=== PATIENT | female | born 1995 | race Two or more races ===

== ENCOUNTER 2018-02-12 15:20 | Emergency (ER) | payer BC, OTHER ==
[~2018-02-12] VITALS: Ht 175.3 cm; Wt 99.8 kg
[2018-02-12 15:20] VITALS: BP 121/61
[~2018-02-12 15:20] MED LIST: DULO20CA50 PO; FLEXERIL; HYDR-971 PO; OXYC-328 PO; SULF1TAB24 PO; TRAZ-85 PO; ZOLP5TAB PO
[2018-02-12] MEDS ORDERED: ACETAMINOPHEN 325 MG TABLET PO ONE (16:15)
[2018-02-12] MEDS ORDERED: IV NORMAL SALINE 1,000ML 1,000 ML IV ONE (16:15)
[2018-02-12 16:23] LABS: CALCIUM 9.4 mg/dL (8.5-10.1); CREATININE 0.6 mg/dL (0.6-1.0); GFR 122.8; POTASSIUM 3.9 mmol/L (3.5-5.1)
[2018-02-12 16:26] LABS: BASO % 0 % (0-3); EOS # 0.1 x10^3/uL (0.0-0.7); EOS % 1 % (0-3); HEMATOCRIT 34.9 % (36.0-47.0); HEMOGLOBIN 11.8 g/dL (12.0-15.5); LYMPH # 2.5 x10^3/uL (1.0-4.8); LYMPH % 22 % (24-48); MEAN CORPUSCULAR HEMOGLOBIN 31 pg (25-35); MEAN CORPUSCULAR HGB CONC 34 g/dL (31-37); MEAN CORPUSCULAR VOLUME 91 fL (79-100); MONO # 0.7 x10^3/uL (0.0-1.1); MONO % 7 % (0-9); NEUT # 7.9 x10^3uL (1.8-7.7); NEUT % 70 % (31-73); PLATELET COUNT 265 x10^3/uL (140-400); RED BLOOD COUNT 3.81 x10^6/uL (3.50-5.40); RED CELL DISTRIBUTION WIDTH 13.6 % (11.5-14.5); WHITE BLOOD COUNT 11.3 x10^3/uL (4.0-11.0)
--- NOTE | 2018-02-12 16:36 | PHYS DOC ---
Past History Past Medical History: Anxiety, Depression Past Surgical History: No Surgical History Smoking: Cigarettes, Less than 1pk/day Alcohol Use: None Drug Use: Amphetamine, Heroin, Marijuana Adult General Chief Complaint Chief Complaint: PELVIC PAIN [facility] HPI 22-year-old female who is 26 weeks presents with lower abdominal pain. The patient states the pain started suddenly while she was having an argument with her boyfriend. The pain is mostly in her right side. She denies nausea, vomiting, diarrhea, fever or chills. She states that she has been feeling the baby move with the same frequency as other days. She denies any vaginal discharge or bleeding. Since her first . She did not go to a hospital that she plans to read because she is trying to decide. She is also changing OB doctors. She has no other complaints. Review of Systems Review of Systems Constitutional: Denies fever or chills [] Eyes: Denies change in visual acuity, redness, or eye pain [] HENT: Denies nasal congestion or sore throat [] Respiratory: Denies cough or shortness of breath [] Cardiovascular: No additional information not addressed in HPI [] GI: Right lower quadrant abdominal pain[] : Denies dysuria or hematuria [] Musculoskeletal: Denies back pain or joint pain [] Integument: Denies rash or skin lesions [] Neurologic: Denies headache, focal weakness or sensory changes [] Endocrine: Denies polyuria or polydipsia [] All other systems were reviewed and found to be within normal limits, except as documented in this note. Current Medications Current Medications Current Medications Medications (Trade) Dose Ordered [facility] Start Time Stop Time Status Last Admin Dose Admin Acetaminophen (Tylenol) 650 mg 1X ONCE 02/12/18 16:15 02/12/18 16:16 DC Sodium Chloride 1,000 ml @ 1,000 mls/hr 1X ONCE 02/12/18 16:15 02/12/18 17:14 Allergies Allergies Allergies Coded Allergies Type Severity Reaction Last Updated Verified tramadol Allergy Intermediate 05/09/14 Yes red dye Adverse Reaction Intermediate 05/08/14 Yes Physical Exam Physical Exam Constitutional: Well developed, well nourished, no acute distress, non-toxic appearance. [] HENT: Normocephalic, atraumatic, bilateral external ears normal, oropharynx moist, no oral exudates, nose normal. [] Eyes: PERRLA, EOMI, conjunctiva normal, no discharge. [] Neck: Normal range of motion, no tenderness, supple, no stridor. [] Cardiovascular:Heart rate regular rhythm, no murmur [] Lungs & Thorax: Bilateral breath sounds clear to auscultation [] Abdomen: Gravid uterus. No increase in pain with palpation of the right lower quadrant. No guarding or rebound.[] Skin: Warm, dry, no erythema, no rash. [] Back: No tenderness, no CVA tenderness. [] Extremities: No tenderness, no cyanosis, no clubbing, ROM intact, no edema. [] Neurologic: Alert and oriented X 3, normal motor function, normal sensory function, no focal deficits noted. [] Psychologic: Affect normal, judgement normal, mood normal. [] Current Patient Data Lab Results Laboratory Tests Test 02/12/18 15:48 02/12/18 16:17 White Blood Count 11.3 x10^3/uL (4.0-11.0) H Red Blood Count 3.81 x10^6/uL (3.50-5.40) Hemoglobin 11.8 g/dL (12.0-15.5) L Hematocrit 34.9 % (36.0-47.0) L Mean Corpuscular Volume 91 fL (79-100) Mean Corpuscular Hemoglobin 31 pg (25-35) Mean Corpuscular Hemoglobin Concent 34 g/dL (31-37) Red Cell Distribution Width 13.6 % (11.5-14.5) Platelet Count 265 x10^3/uL (140-400) Neutrophils (%) (Auto) 70 % (31-73) Lymphocytes (%) (Auto) 22 % (24-48) L Monocytes (%) (Auto) 7 % (0-9) Eosinophils (%) (Auto) 1 % (0-3) Basophils (%) (Auto) 0 % (0-3) Neutrophils # (Auto) 7.9 x10^3uL (1.8-7.7) H Lymphocytes # (Auto) 2.5 x10^3/uL (1.0-4.8) Monocytes # (Auto) 0.7 x10^3/uL (0.0-1.1) Eosinophils # (Auto) 0.1 x10^3/uL (0.0-0.7) Basophils # (Auto) 0.0 x10^3/uL (0.0-0.2) Sodium Level 139 mmol/L (136-145) Potassium Level 3.9 mmol/L (3.5-5.1) Chloride Level 105 mmol/L (98-107) Carbon Dioxide Level 23 mmol/L (21-32) Anion Gap 11 (6-14) Blood Urea Nitrogen 6 mg/dL (7-20) L Creatinine 0.6 mg/dL (0.6-1.0) Estimated GFR (Cockcroft-Gault) 122.8 Glucose Level 91 mg/dL (70-99) Calcium Level 9.4 mg/dL (8.5-10.1) Glucose (Fingerstick) 92 mg/dL (70-99) EKG EKG [] Radiology/Procedures Radiology/Procedures [] Course & Med Decision Making Course & Med Decision Making Pertinent Labs and Imaging studies reviewed. (See chart for details) Driving fluids and Tylenol patient was much better. She feels as though she can go home. I have encouraged her to stay well-hydrated. She is stable for discharge at this time. [] Dragon Disclaimer Dragon Disclaimer This electronic medical record was generated, in whole or in part, using a voice recognition dictation system. Departure Departure: Referrals: PCP,KAILA (PCP) AMADOR WALSH DO Feb 12, 2018 16:36
== END 2018-02-12 17:40 | disposition home or self-care (01) ==
LOC: ER 15:20
DX: O26.892 Other specified pregnancy related conditions, second trimester (principal); R10.31 Right lower quadrant pain; O99.342 Other mental disorders complicating pregnancy, second trimester; F41.9 Anxiety disorder, unspecified; F32.9 Major depressive disorder, single episode, unspecified; O99.332 Smoking (tobacco) complicating pregnancy, second trimester; Z3A.26 26 weeks gestation of pregnancy; Z88.6 Allergy status to analgesic agent; Z91.041 Radiographic dye allergy status
CPT/HCPCS: 36415; 80048; 82947; 85025; 99284-25; J7030

== ENCOUNTER → 2019-11-10 | Outpatient (CLI) | payer BC, OTHER ==
[~2019-11-10] MED LIST changes: +HYDR-3165 PO; -HYDR-971 PO; -OXYC-328 PO; +OXYC1TAB22 PO; +TRAZ-120 PO; -TRAZ-85 PO
--- NOTE | 2019-11-10 12:55 | RAD ---
EXAM: OB ultrasound second trimester 11/10/2019 11:00 AM INDICATION: Unsure of LMP. COMPARISON: None TECHNIQUE: OB ultrasound performed per second trimester protocol. FINDINGS: There is a single living intrauterine . heart rate is 169 bpm. movement is visualized. The placenta is anterior, grade 0. No placenta previa. Cervix measures 6.4 cm. BIOMETRY Biparietal diameter: 2.9 cm, 15 weeks 3 days Head circumference: 11.4 cm, 15 weeks 4 days Abdominal circumference: 9.3 cm, 15 weeks 3 days Femur length: 1.7 cm, 15 weeks 0 days HC/AC ratio: 1.23 Gestational age by ultrasound: 15 weeks 3 days anatomy cannot be evaluated on this exam due to early gestational age. Left ovary measures 5.0 x 2.1 x 2.9 cm. Right is not visualized. IMPRESSION: Single living intrauterine with gestational age 15 weeks 3 days by ultrasound. Electronically signed by: Rhonda Horvath MD (11/10/2019 12:52 PM) [id number]
== END | disposition home or self-care (01) ==
LOC: US 10:55
PROVIDERS: ATTEND Obstetrics & Gynecology
DX: Z34.92 Encounter for supervision of normal pregnancy, unspecified, second trimester (principal); Z3A.15 15 weeks gestation of pregnancy
CPT/HCPCS: 76805

== ENCOUNTER → 2019-12-26 | Outpatient (CLI) | payer OTHER ==
--- NOTE | 2019-12-26 16:28 | RAD ---
EXAM: Ultrasound OB Greater than 14 weeks INDICATION: Reason: ANATOMY SCAN, NORMAL SECOND TRI / Spl. Instructions: / History: TECHNIQUE: Real-time obstetrical ultrasound was performed with permanent freeze-frame documentation. COMPARISON: None. FINDINGS: POSITION: Breech HEART RATE: 152 bpm NELL: 14.7 cm. PLACENTA: Anterior, not low-lying. CERVICAL LENGTH: Not assessed. MATERNAL UTERUS: Unremarkable. MATERNAL ADNEXA: Unremarkable. AGE/DATES: Gestational Age by LMP: 22 weeks 4 days Gestation Age by US: 21 weeks 5 days EDC by LMP: April 26, 2020 EDC by US: May 02, 2020 WEIGHT: 465 grams +/- 69 grams PERCENTILE WEIGHT: 30% BIOMETRIC PARAMETERS: BPD: 5.1 cm corresponding with 21 weeks 2 days HC: 18.9 cm corresponding with 21 weeks and 1 day AC: 17.8 cm corresponding with 22 weeks 5 days FL: 3.6 cm corresponding with 21 weeks 3 days ANATOMY: CARDIAC: Normal four chamber heart. Normal right and left ventricular outflow tracts. UMBILICAL CORD: Normal 3 vessel cord. Normal cord insertion. BRAIN: Unremarkable. NOSE/LIPS: Not well seen SPINE: Not well seen. EXTREMITIES: Unremarkable. STOMACH: Unremarkable. KIDNEYS: Unremarkable. BLADDER: Not well seen IMPRESSION: OB ultrasound demonstrating a single viable fetus in breech position. Estimated gestational age of 21 weeks 5 days and EDC of May 02, 2020. Electronically signed by: Marion Fontana MD (12/26/2019 4:25 PM) [id number]
== END ==
LOC: US 10:50
PROVIDERS: ATTEND Obstetrics & Gynecology
DX: O32.1XX0 Maternal care for breech presentation, not applicable or unspecified (principal); Z3A.21 21 weeks gestation of pregnancy
CPT/HCPCS: 76805

== ENCOUNTER 2021-10-29 18:32 | Emergency (ER) | payer OTHER ==
[~2021-10-29] VITALS: Ht 175.3 cm; Wt 89.9 kg
--- NOTE | 2021-10-29 18:38 | PHYS DOC ---
Past History Past Medical History: Anxiety, Depression Past Surgical History: No Surgical History Smoking: Cigarettes, Less than 1pk/day Alcohol Use: None Drug Use: Amphetamine, Heroin, Marijuana General Adult EDM: Chief Complaint: OVERDOSE HPI: HPI: Uh.. uh.. ( snoring).. "yeah" yeah."... " Fuck off"' Patient is a 25 year old female who presents with hx. found in car non- responsive. Pt. hx. of Meth and Herion per family and bystanders per sales and service technician. Pt give 4 mg of Narcan nasal and had partial regain of awareness and verbal response. Pt has sunburn to thighs. Still very sedated on arrival. Pt. know to have passed and attempted to pass forged scripts for Clonzepam on 06/11/21, 93 Alpraxzolam, Hydrocodone on 06/08/21. It appeared she had altered her sons antibiotic scripts. Pt. also picked up Rx. for similar meds for Esteban Mcintyre. . Pt. presents today with apparent most likely narcotic over dose, by her response to nasal narcan. Pt. hx of prior polysubstance abuse 10 yrs ago that required hospitalization. Pt. in hot car in excess of 45 min. at least. Further history is not currently available. Mother states she is currently living with her. Social situation, she has lost custody of her children because of narcotic abuse. Children are currently living with her brother. Patient found unknown white powder substance on her person. This was signed out to Security. Pt. is arousable with noxious stimuli but falls back to sleep quickly. Review of Systems: Review of Systems: ROS- limited because of pt. sedated state. Family History: Family History: Not currently available' -Brother called and advised he has her children Current Medications: Current Meds: See nursing for home meds Allergies: Allergies: Allergies Coded Allergies Type Severity Reaction Last Updated Verified tramadol Allergy Intermediate 05/09/14 Yes red dye Adverse Reaction Intermediate 05/08/14 Yes Physical Exam: PE: Constitutional: , no acute distress, very sedated as if the influence of narcotic or benzodiazepine and appearance. [] HENT: Normocephalic, atraumatic, bilateral external ears normal, oropharynx moist, no oral exudates, nose normal. [] Eyes: PERRLA, EOMI, conjunctiva normal, no discharge. [] Neck: Normal range of motion, no tenderness, supple, no stridor. He acute right side Cardiovascular: Tachycardia heart rate regular rhythm, no murmur [] Lungs & Thorax: Bilateral breath sounds equal apex with scattered wheezes auscultation [] few rhonchi over right lung gonzales Abdomen: Bowel sounds decreased, soft, no tenderness, no masses, no pulsatile masses. [] Skin: Warm, dry, no erythema, no rash. [] Sunburn on thighs Back: No tenderness, no CVA tenderness. [] Extremities: No tenderness, no cyanosis, no clubbing, ROM intact, no edema. [] Neurologic: Very sedated. Arousable with minimal noxious stimuli. Moves all extremities with noxious stimuli, does appear to have distal sensory, no focal deficits noted. [] Psychologic: Affect sedated, judgement currently impaired, EKG: EKG: My interpretation of EKG shows a sinus tachycardia rhythm [] at a rate of 114. No acute morphology. No findings acute STEMI with contralateral changes. Time of EKG is 1926 hrs. Radiology/Procedures: Radiology/Procedures: [place] [address] IMAGING REPORT Signed PATIENT: SHORTY GALLOWAY ACCOUNT: [id number] : 1995 LOCATION: ER AGE: 25 SEX: F EXAM STATUS: REG ER ORD. PHYSICIAN: JONATHAN CUEVAS MD REASON: suspect narcotic od, mental status change, min. resp to 4 narca PROCEDURE: CT HEAD AND CERVICAL SPINE WO EXAM: CT HEAD WITHOUT IV CONTRAST CLINICAL HISTORY: Reason: suspect narcotic od, mental status change, min. resp to 4 narca / Spl. Instructions: / History: COMPARISON: None. TECHNIQUE: Routine CT of the head without contrast. Soft tissues and bone windows were reviewed. PQRS compliance statement - One or more of the following individualized dose reduction techniques were utilized for this study: 1. Automated exposure control 2. Adjustment of the mA and/or kV according to patient size 3. Use of iterative reconstruction technique FINDINGS: There is no evidence of hemorrhage, mass or extra-axial fluid collection. Bergeron-white differentiation is maintained with no evidence of edema. There is no mass effect or shift of the intracranial structures. The ventricles, basilar cisterns and cortical sulci are normal in size and configuration for the patients stated age. The cerebellum and brainstem are unremarkable. The calvarium demonstrates no evidence of fracture or focal lesion. There is normal aeration of the visualized paranasal sinuses and mastoid air cells. The visualized portions of the orbits are normal. IMPRESSION: No evidence for acute intracranial process. EXAM: CT CERVICAL SPINE WITHOUT IV CONTRAST CLINICAL HISTORY: Reason: suspect narcotic od, mental status change, min. resp to 4 narca / Spl. Instructions: / History: COMPARISON: None available. TECHNIQUE: Helical CT of the cervical spine was performed. Axial, coronal and sagittal reformatted images were also performed. PQRS compliance statement - One or more of the following individualized dose reduction techniques were utilized for this study: 1. Automated exposure control 2. Adjustment of the mA and/or kV according to patient size 3. Use of iterative reconstruction technique FINDINGS: Vertebral body heights are preserved. No spondylolisthesis. Straightening of the normal cervical lordosis. Intervertebral disc heights are preserved. 11 mm left thyroid nodule can be further assessed by thyroid ultrasound. IMPRESSION: 1. No acute cervical spine fracture or subluxation. 2. 11 mm left thyroid nodule can be further assessed by thyroid ultrasound. Electronically signed by: Sabino Monte MD (10/29/2021 9:16 PM) [facility] DICTATED AND SIGNED BY: SABINO MONTE MD[address] [address] IMAGING REPORT Signed PATIENT: SHORTY GALLOWAY ACCOUNT: [id number] : 1995 LOCATION: ER AGE: 25 SEX: F EXAM STATUS: REG ER ORD. PHYSICIAN: JONATHAN CUEVAS MD REASON: Overdose, lethargic PROCEDURE: PORTABLE CHEST 1V EXAMINATION: XR CHEST 1V CLINICAL HISTORY: Overdose, lethargic. EXAM DATE/TIME: 10/29/2021 7:05 PM COMPARISON: None FINDINGS: Lines, Tubes, and Devices: None. Cardiomediastinal Silhouette: Within normal limits. Lungs and Pleura: No evidence of focal airspace consolidation, pleural effusion, or pneumothorax. Minimal left basilar opacities, likely subsegmental atelectasis. Bones and Soft Tissues: No acute osseous abnormality. IMPRESSION: Minimal left basilar airspace disease, likely subsegmental atelectasis. Electronically signed by: Mykel Roman DO (10/29/2021 8:00 PM) [facility] DICTATED AND SIGNED BY: MYKEL ROMAN DO DATE: 10/29/211958 CC: JONATHAN CUEVAS MD; PCP,NO ~ ][place] [address] IMAGING REPORT Signed PATIENT: SHORTY GALLOWAY ACCOUNT: [id number] : 1995 LOCATION: ER AGE: 25 SEX: F EXAM STATUS: REG ER ORD. PHYSICIAN: JONATHAN CUEVAS MD REASON: Overdose, lethargic PROCEDURE: PORTABLE CHEST 1V EXAMINATION: XR CHEST 1V CLINICAL HISTORY: Overdose, lethargic. EXAM DATE/TIME: 10/29/2021 7:05 PM COMPARISON: None FINDINGS: Lines, Tubes, and Devices: None. Cardiomediastinal Silhouette: Within normal limits. Lungs and Pleura: No evidence of focal airspace consolidation, pleural effusion, or pneumothorax. Minimal left basilar opacities, likely subsegmental atelectasis. Bones and Soft Tissues: No acute osseous abnormality. IMPRESSION: Minimal left basilar airspace disease, likely subsegmental atelectasis. Electronically signed by: Mykel Roman DO (10/29/2021 8:00 PM) [facility] DICTATED AND SIGNED BY: MYKEL ROMAN DO DATE: 10/29/211958 CC: JONATHAN CUEVAS MD; PCP,NO ~ Heart Score: C/O Chest Pain: N/A Risk Factors: Risk Factors: DM, Current or recent (<one month) smoker, HTN, HLP, family history of CAD, obesity. Risk Scores: Score 0 - 3: 2.5% MACE over next 6 weeks - Discharge Home Score 4 - 6: 20.3% MACE over next 6 weeks - Admit for Clinical Observation Score 7 - 10: 72.7% MACE over next 6 weeks - Early Invasive Strategies Course & Med Decision Making: Course & Med Decision Making Pertinent Labs and Imaging studies reviewed. (See chart for details) Discussed presentation, testing and tx plan with Dr. Castillo- requested pt. be transfer to [facility]- ICU. 2100. Critical care 90 min. Impression: 1. Appearance of Narcotic Overdose - by reponsive to Nasal Narcan 2. Sun Burn 3. Dehydration 4. Polysubstance abuse-drug screen positive for marijuana, methamphetamine, benzodiazepines, and response to Narcan ( suspect Fentanyl over dose.) 5. Left basilar pneumonia/atelectasis 6. Leukocytosis. 17.1 7. Hx of passing forged Rx scripts for benzos and narcotics [] Dragon Disclaimer: Dragon Disclaimer: This electronic medical record was generated, in whole or in part, using a voice recognition dictation system. Departure Departure: Referrals: PCP,NO (PCP) Dragon Disclaimer This chart was dictated in whole or in part using Voice Recognition software in a busy, high-work load, and often noisy Emergency Department environment. It may contain unintended and wholly unrecognized errors or omissions. Dragon Disclaimer This chart was dictated in whole or in part using Voice Recognition software in a busy, high-work load, and often noisy Emergency Department environment. It may contain unintended and wholly unrecognized errors or omissions. Dragon Disclaimer This chart was dictated in whole or in part using Voice Recognition software in a busy, high-work load, and often noisy Emergency Department environment. It may contain unintended and wholly unrecognized errors or omissions. JONATHAN CUEVAS MD October 29, 2021 18:38
[2021-10-29 19:02] VITALS: BP 11/63
[2021-10-29 19:14] LABS: BGAS PH 7.32 (7.35-7.45)
[2021-10-29] MEDS ORDERED: IV RINGERS SOLUTION,LACTATED 1,000 ML IV SCH (19:15)
[2021-10-29 19:35] LABS: U PREG PATIENT NEGATIVE (NEG)
[2021-10-29 19:36] LABS: CLARITY,URINE CLEAR; COLOR,URINE YELLOW; GLUCOSE,URINE NEG (NEG)
[2021-10-29 19:36] LABS: BASO % 0 % (0-3); EOS # 0.1 x10^3/uL (0.0-0.7); EOS % 0 % (0-3); HEMATOCRIT 39.9 % (36.0-47.0); HEMOGLOBIN 13.1 g/dL (12.0-15.5); LYMPH # 1.1 x10^3/uL (1.0-4.8); LYMPH % 6 % (24-48); MEAN CORPUSCULAR HEMOGLOBIN 30 pg (25-35); MEAN CORPUSCULAR HGB CONC 33 g/dL (31-37); MEAN CORPUSCULAR VOLUME 92 fL (79-100); MONO # 0.3 x10^3/uL (0.0-1.1); MONO % 2 % (0-9); NEUT # 15.5 x10^3uL (1.8-7.7); NEUT % 91 % (31-73); PLATELET COUNT 336 x10^3/uL (140-400); RED BLOOD COUNT 4.33 x10^6/uL (3.50-5.40); RED CELL DISTRIBUTION WIDTH 13.5 % (11.5-14.5); WHITE BLOOD COUNT 17.1 x10^3/uL (4.0-11.0)
[2021-10-29 19:37] LABS: CALCIUM 8.7 mg/dL (8.5-10.1); CREATININE 1.6 mg/dL (0.6-1.0); GFR 46.8; POTASSIUM 3.7 mmol/L (3.5-5.1)
[2021-10-29 19:37] LABS: BACTERIA,URINE FEW /HPF (0-FEW); NITRITE,URINE NEG (NEG); RBC,URINE OCC /HPF (0-2); SQUAMOUS EPITHELIAL CELL,UR FEW /LPF; WBC,URINE OCC /HPF (0-4)
[2021-10-29 19:40] LABS: BARBITURATES NEG (NEG); BENZODIAZEPINES POS (NEG); CANNABINOIDS POS (NEG); COCAINE NEG (NEG); METHADONE NEG (NEG); OPIATES NEG (NEG); PHENCYCLIDINE NEG (NEG)
[2021-10-29 19:41] LABS: AMPHETAMINE/METHAMPHETAMINE POS (NEG)
[2021-10-29 19:47] LABS: % BANDS 6 % (0-9); % LYMPHS 18 % (24-48); % MONOS 1 % (0-10); % SEGS 75 % (35-66)
[2021-10-29 19:50] LABS: ALBUMIN 3.6 g/dL (3.4-5.0); DIRECT BILIRUBIN 0.2 mg/dL (0.0-0.2); MAGNESIUM 2.8 mg/dL (1.8-2.4); TOTAL PROTEIN 7.3 g/dL (6.4-8.2)
--- NOTE | 2021-10-29 20:03 | RAD ---
EXAMINATION: XR CHEST 1V CLINICAL HISTORY: Overdose, lethargic. EXAM DATE/TIME: 10/29/2021 7:05 PM COMPARISON: None FINDINGS: Lines, Tubes, and Devices: None. Cardiomediastinal Silhouette: Within normal limits. Lungs and Pleura: No evidence of focal airspace consolidation, pleural effusion, or pneumothorax. Min imal left basilar opacities, likely subsegmental atelectasis. Bones and Soft Tissues: No acute osseous abnormality. IMPRESSION: Minimal left basilar airspace disease, likely subsegmental atelectasis. Electronically signed by: Mykel Vo DO (10/29/2021 8:00 PM) [facility]
[2021-10-29 20:15] LABS: INFLUENZA A PATIENT NEGATIVE (NEGATIVE); INFLUENZA B PATIENT NEGATIVE (NEGATIVE)
[2021-10-29] MEDS ORDERED: AZITHROMYCIN 500 MG in IV NORMAL SALINE 250ML 250 ML IV ONE (20:30)
[2021-10-29] MEDS ORDERED: IV NORMAL SALINE 250ML 250 ML ONE (21:01)
[2021-10-29] MEDS ORDERED: cefTRIAXone SODIUM 1 GM VIAL ONE (21:01)
[2021-10-29] MEDS ORDERED: AZITHROMYCIN 500 MG VIAL. IV ONE (21:01)
[2021-10-29] MEDS ORDERED: IV NORMAL SALINE 50ML 50 ML ONE (21:01)
[2021-10-29 21:03] LABS: PLT ESTIMATE ADEQUATE (ADEQUATE)
--- NOTE | 2021-10-29 21:19 | RAD ---
EXAM: CT HEAD WITHOUT IV CONTRAST CLINICAL HISTORY: Reason: suspect narcotic od, mental status change, min. resp to 4 narca / Spl. In structions: / History: COMPARISON: None. TECHNIQUE: Routine CT of the head without contrast. Soft tissues and bone windows were reviewed. PQRS compliance statement - One or more of the following individualized dose reduction techniques wer e utilized for this study: 1. Automated exposure control 2. Adjustment of the mA and/or kV according to patient size 3. Use of iterative reconstruction technique FINDINGS: There is no evidence of hemorrhage, mass or extra-axial fluid collection. Bergeron-white differentiation is maintained with no evidence of edema. There is no mass effect or shift of the intracranial structures. The ventricles, basilar cisterns and cortical sulci are normal in size and configuration for the freida ents stated age. The cerebellum and brainstem are unremarkable. The calvarium demonstrates no evidence of fracture or focal lesion. There is normal aeration of the visualized paranasal sinuses and mastoid air cells. The visualized portions of the orbits are normal. IMPRESSION: No evidence for acute intracranial process. EXAM: CT CERVICAL SPINE WITHOUT IV CONTRAST CLINICAL HISTORY: Reason: suspect narcotic od, mental status change, min. resp to 4 narca / Spl. In structions: / History: COMPARISON: None available. TECHNIQUE: Helical CT of the cervical spine was performed. Axial, coronal and sagittal reformatted im ages were also performed. PQRS compliance statement - One or more of the following individualized dose reduction techniques wer e utilized for this study: 1. Automated exposure control 2. Adjustment of the mA and/or kV according to patient size 3. Use of iterative reconstruction technique FINDINGS: Vertebral body heights are preserved. No spondylolisthesis. Straightening of the normal cervical lordosis. Intervertebral disc heights are preserved. 11 mm left thyroid nodule can be further assessed by thyroid ultrasound. IMPRESSION: 1. No acute cervical spine fracture or subluxation. 2. 11 mm left thyroid nodule can be further assessed by thyroid ultrasound. Electronically signed by: Sabino Noyola MD (10/29/2021 9:16 PM) GAGAN
--- NOTE | 2021-10-29 23:20 | EKG ---
[address] [address] Test Date: 2021-10-29 Test Time: 19:26:14 Pat Name: SHORTY GALLOWAY Department: Room: Gender: F Railroad Operator: : 1995 Requested By: JONATHAN CUEVAS Order Number: [id number] Reading MD: Yonis Jules Measurements Intervals [place] Rate: 114 P: 64 IL: 146 QRS: 74 QRSD: 92 T: 33 QT: 338 QTc: 469 Interpretive Statements SINUS TACHYCARDIA Electronically Signed On 10-31-2021 14:50:43 CDT by Yonis Jules
== END 2021-10-29 22:33 | disposition short-term general hospital (02) ==
LOC: ER 18:32
DX: L55.9 Sunburn, unspecified (principal); E86.0 Dehydration; F19.10 Other psychoactive substance abuse, uncomplicated; D72.829 Elevated white blood cell count, unspecified; F41.9 Anxiety disorder, unspecified; F32.9 Major depressive disorder, single episode, unspecified; F15.10 Other stimulant abuse, uncomplicated; F12.10 Cannabis abuse, uncomplicated; Z20.822 Contact with and (suspected) exposure to COVID-19; Z88.6 Allergy status to analgesic agent; Z91.041 Radiographic dye allergy status
CPT/HCPCS: 36415; 36600; 51702; 70450; 71045; 72125; 80048; 80076; 80307; 81001; 81025; 82550; 82803; 83690; 83735; 83880; 84443; 84484; 84702; 85007; 85025; 85610; 85730; 87428; 93005; 96360; 99285; C9803; G0480; J7120; U0003